=== PATIENT | female | born 1950 | race Caucasian/White ===

== ENCOUNTER → 2017-06-06 | Outpatient (CLI) | payer OTHER ==
[~2017-06-06] VITALS: Ht 165.1 cm; Wt 61.2 kg
[~2017-06-06] MED LIST: ARICEPT 5 MG TAB5 MG PO; SERTRALINE HCL50 MG PO
--- NOTE | ~2017-06-06 | P ---
[facility] [place] [address] PROCEDURE REPORT Name: ANGEL MITCHELL Room #: REG [facility]#: [id number] Admission: 06/06/17 Attend Phys: Cornelio Jurado MD Discharge: Date of : 52 Report #: [id number] THIS REPORT FOR: //name// CC: Indira Kenny DO Cornelio Jurado BRIEF HISTORY: The patient is a 66-year-old woman here for her first average risk screening colonoscopy. PREOPERATIVE DIAGNOSIS: Average risk screening colonoscopy. POSTOPERATIVE DIAGNOSES: 1. Few scattered colonic diverticula. 2. Hypertrophied anal papillae. MEDICATIONS: Deep sedation with propofol per anesthesia. SPECIMEN: None. ESTIMATED BLOOD LOSS: None. PROCEDURE: Colonoscopy to cecum and terminal ileum. FINDINGS: Prior to propofol sedation, the procedure of colonoscopy discussed with the patient as well as potential risks, benefits, and complications. She indicates she understands and desires to proceed. With the patient in left lateral decubitus position, digital examination was completed, which revealed no abnormalities. Subsequently, the [employer] video colonoscope was introduced into the rectum and advanced under direct vision to the cecum. Done with minimal difficulty. The cecum was identified by the ileocecal valve and the appendiceal orifice. I was able to visualize the distal segment of terminal ileum, which was inspected and noted to be unremarkable. At that point, the scope was slowly withdrawn and careful circumferential views were obtained including retroflexing the scope in the ascending colon. Upon slow withdrawal of the scope, the prep was noted to be good. The mucosa was within normal limits, normal vascular pattern, normal light reflex. As we withdrew the scope, an occasional diverticulum was seen scattered about the colon, but there was no endoscopic evidence of diverticulitis. Scope was further withdrawn and no neoplastic lesions were seen. The mucosa was normal throughout. Scope was withdrawn in the rectum and no abnormalities were seen. However, upon retroflexion of the scope in the rectum, hypertrophied anal papillae were seen. No other abnormalities were seen. Scope was withdrawn. The patient tolerated the procedure well. CONDITION OF THE PATIENT UPON DISCHARGE: Following procedure, the patient [facility] [address] [place] [address] PROCEDURE REPORT Name: ANGEL MITCHELL Room #: REG [facility].#: [id number] Admission: 06/06/17 Attend Phys: Cornelio Jurado MD Discharge: Date of : 52 Report #: [id number] drowsy, aroused, conversant and will be discharged home when fully ambulatory. INSTRUCTIONS TO THE PATIENT AND FAMILY AT THE TIME OF DISCHARGE: No neoplastic lesions seen today. This is a negative colorectal screening exam. She is considered average risk and we would consider colonoscopy in 10 years. However, in view of her history of dementia, we would take into consideration overall health status in 10 years. She will return to Dr. Kenny and return to see me as needed. This is the patient's initial colonoscopy. Withdrawal time from the cecum was 10 minutes 54 seconds. By: 1140 1401 Cornelio Jurado MD /nt
== END | disposition home or self-care (01) ==
LOC: GI 09:04
DX: Z12.11 Encounter for screening for malignant neoplasm of colon (principal); K57.30 Diverticulosis of large intestine without perforation or abscess without bleeding; K62.89 Other specified diseases of anus and rectum; F03.90 Unspecified dementia, unspecified severity, without behavioral disturbance, psychotic disturbance, mood disturbance, and anxiety; Z86.73 Personal history of transient ischemic attack (TIA), and cerebral infarction without residual deficits
CPT/HCPCS: 62110; 62900

== ENCOUNTER → 2017-10-16 | Outpatient (CLI) | payer OTHER | LOC: MRI 13:00 | DX: G30.0 Alzheimer's disease with early onset (principal) ==

== ENCOUNTER → 2017-10-23 | Outpatient (CLI) | payer OTHER ==
--- NOTE | ~2017-10-23 | 2DMMODE ---
[facility] [place] [address] 2 D/M-MODE ECHOCARDIOGRAM Name: NATALY MITCHELLHA Robert Room #: REG [facility]#: [id number] Admission: 10/23/17 Attend Phys: Gabriela Gibson, Discharge: Date of : 52 Date of Service: 10/23/17 1710 Report #: [id number] THIS REPORT FOR: //name// APPROVED REPORT Study performed: 10/23/2017 13:59:47 EXAM: Comprehensive 2D, Doppler, and color-flow Echocardiogram Patient Location: Out-Patient Status: routine BSA: 1.64 HR: 70 bpm Rhythm: NSR Other Information Study Quality: Adequate/thin body habitus and lung artifact. Off axis windows. Indications CVA Echo Enhancing Agent Indication: Rule out Shunt Agent(s) / Amount(s) Used: Agitated Saline 6 cc Agitated Saline 6 cc 2D Dimensions RVDd: 31.84 mm LVEF(%): 67.49 (>50%) IVSd: 7.52 (7-11mm) LVOT Diam: 19.77 (18-24mm) LVDd: 39.02 mm PWd: 7.94 (7-11mm) LVDs: 24.60 (25-40mm) Aortic Root: 31.07 mm Agarwal's LVEF: 67.49 % Volumes Left Atrial Volume (Systole) Single Plane 4CH: 30.61 mL Aortic Valve AoV Peak Roel.: 1.43 m/s AO Peak Gr.: 8.22 mmHg LVOT Max P.36 mmHg LVOT Max V: 1.26 m/s [facility] [address] [place] [address] 2 D/M-MODE ECHOCARDIOGRAM Name: PETRONAJARETCROWANGEL G Room #: REG [facility]#: [id number] Admission: 10/23/17 Attend Phys: Gabriela Gibson, Discharge: Date of : 52 Date of Service: 10/23/17 1710 Report #: [id number] RONIT Vmax: 2.70 cm2 Mitral Valve E/A Ratio: 1.3 MV Decel. Time: 251.00 ms MV E Max Roel.: 0.89 m/s MV A Roel.: 0.71 m/s MV PHT: 72.79 ms IVRT: 78.43 ms Pulmonary Valve PV Peak Roel.: 1.00 m/s PV Peak Gr.: 3.99 mmHg Pulmonary Vein P Vein S: 0.57 m/s P Vein A: 0.63 m/s P Vein D: 0.65 m/s P Vein A Dur.: 115.3 msec P Vein S/D Ratio: 0.88 Tricuspid Valve TR Peak Roel.: 2.25 m/s RAP Estimate: 5.00 mmHg TR Peak Gr.: 20.18 mmHg PA Pressure: 25.00 mmHg Left Ventricle The left ventricle is normal size. There is normal LV segmental wall motion. There is normal left ventricular wall thickness. Left ventricular systolic function is normal. LVEF is 60%. Right Ventricle The right ventricle is normal size. The right ventricular systolic function is normal. Atria The left atrium size is normal. Right to left shunt noted with contrast bubble injection consistent with patent foramen ovale The right atrium size is normal. Aortic Valve Aortic valve leaflets are mildly thickened. Trace aortic regurgitation. There is no aortic valvular stenosis. Mitral Valve The mitral valve is normal in structure. Trace to mild mitral regurgitation. Tricuspid Valve [facility] [address] [place] [address] 2 D/M-MODE ECHOCARDIOGRAM Name: ANGEL MITCHELL Room #: REG [facility]#: [id number] Admission: 10/23/17 Attend Phys: Gabriela Gibson, Discharge: Date of : 52 Date of Service: 10/23/17 1710 Report #: [id number] The tricuspid valve is normal in structure. Mild tricuspid regurgitation. Estimated PAP is 25mmHg. Pulmonic Valve Pulmonic valve is not well visualized. There is no pulmonic valvular regurgitation. Great Vessels The aortic root is normal in size. Ascending aorta is not well visualized. IVC is normal in size and collapses >50% with inspiration. Pericardium There is no pericardial effusion. <Conclusion> Left ventricular systolic function is normal. There is normal LV segmental wall motion. LVEF is 60%. Right to left shunt noted with contrast bubble injection consistent with patent foramen ovale Aortic valve leaflets are mildly thickened. Trace aortic regurgitation, no stenosis. The mitral valve is normal in structure. Trace to mild mitral regurgitation. Mild tricuspid regurgitation. Estimated pulmonary artery pressure of 25mmHg. There is no pericardial effusion. <ELECTRONICALLY SIGNED> By: Xavi Philip MD, FACC 10/23/171709 09 09 Xavi Philip MD, FACC /INF
== END ==
LOC: CV 09:23
DX: I08.1 Rheumatic disorders of both mitral and tricuspid valves (principal); I65.23 Occlusion and stenosis of bilateral carotid arteries; I63.9 Cerebral infarction, unspecified

== ENCOUNTER 2018-12-16 19:05 | Emergency (ER) | payer OTHER ==
[~2018-12-16] VITALS: Ht 165.1 cm; Wt 61.2 kg
[2018-12-16 19:35] LABS: ABSOLUTE NEUTROPHILS 4.4 thou/uL (1.4-8.2); EOSINOPHILS 4.8 % (0.0-3.0); HEMATOCRIT 40.1 % (37.0-47.0); HEMOGLOBIN 13.6 gm/dL (12.0-15.0); LYMPHOCYTES 24.2 % (24.0-44.0); MCH 31.5 pg (26.0-34.0); MCHC 33.8 g/dL (28.0-37.0); MCV 93.3 fL (80.0-100.0); MONOCYTES 9.5 % (1.0-8.0); PLATELET COUNT 236 thou/uL (150-400); POLYS 60.5 % (36.0-66.0); RDW 14.4 % (10.5-14.5); WBC 7.2 thou/uL (4.0-11.0)
[2018-12-16 19:38] LABS: CALCIUM 9.4 mg/dL (8.5-10.1); CREATININE 1.2 mg/dL (0.6-1.0); POTASSIUM 4.6 mmol/L (3.5-5.1)
[2018-12-16 19:41] LABS: URINE BILIRUBIN NEGATIVE (Negative); URINE BLOOD NEGATIVE (Negative); URINE CLARITY CLEAR; URINE COLOR YELLOW; URINE GLUCOSE-RANDOM* NEGATIVE (Negative); URINE KETONES NEGATIVE (Negative); URINE LEUKOCYTES-REFLEX NEGATIVE (Negative); URINE NITRITE-REFLEX NEGATIVE (Negative); URINE PROTEIN (DIPSTICK) NEGATIVE (Negative); URINE UROBILINOGEN 0.2 E.U./dl (0.2-1.0)
[2018-12-16 19:44] LABS: ALBUMIN 3.9 g/dL (3.4-5.0); TOTAL BILIRUBIN 0.3 mg/dL (<0.1-1.0); TOTAL PROTEIN 7.1 g/dL (6.4-8.2)
[2018-12-16 20:15] VITALS: BP 119/66
== END 2018-12-16 20:25 | disposition home or self-care (01) ==
LOC: ER 19:05
PROVIDERS: Physician Assistant
DX: F03.90 Unspecified dementia, unspecified severity, without behavioral disturbance, psychotic disturbance, mood disturbance, and anxiety (principal); G47.30 Sleep apnea, unspecified; Z86.73 Personal history of transient ischemic attack (TIA), and cerebral infarction without residual deficits